=== PATIENT | female | born 1995 | race Asian ===

== ENCOUNTER 2025-01-12 22:25 | Inpatient (IN) ==
[2025-01-12] MEDS ORDERED: LIDOCAINE 1% LOCAL 20 ML VIAL INFIL PRN (23:11)
[2025-01-12] MEDS ORDERED: CALCIUM CARBONATE 500 MG CHEWABLE TAB PO PRN (23:11)
[2025-01-12] MEDS ORDERED: ACETAMINOPHEN 325 MG TAB PO PRN (23:11)
--- NOTE | 2025-01-12 23:16 | History & Physical Report ---
Date of Service January 12, 2025 Assessment & Plan (1) Normal labor: Plan: primip in active labor at 40+ weeks will begin PCN for GBS prophylaxis epidural when requested BSG Q2H anticipate vaginal History of Present Illness Primary Care Provider: PIO Martinez Jennifer is a 29 yo female EDC 01/08/25 who presents in active labor at 40 4/7 weeks. complicated by diet controlled GDM , hypothyroidism. testing has been reassuring. GBS -positive. O -positive Allergies Allergy/AdvReac Type Severity Reaction Status Date / Time No Known Allergies Allergy Verified 01/12/25 22:45 Home Medications Medication Instructions Recorded Confirmed Type acetone (urine) test (Ketone Urine #50 ea 08/09/24 01/10/25 Rx Test strips) lancets 33 gauge (OneTouch Delica #150 ea 08/09/24 01/10/25 Rx Plus Lancet) blood-glucose meter (OneTouch #1 ea 08/13/24 01/10/25 Rx Verio Flex Start kit) blood sugar diagnostic (OneTouch #150 ea 10/14/24 01/10/25 Rx Verio test strips) Euthyrox 88 mcg tablet 88 mcg PO DAILY #30 tabs 11/04/24 01/12/25 Rx (levothyroxine) cholecalciferol (vitamin D3) 1,250 1,250 mcg PO .weekly 8 weeks #8 11/20/24 01/12/25 Rx mcg (50,000 unit) capsule caps breast pump #1 ea 12/13/24 01/10/25 Rx Patient History Medical History Low ferritin Low vitamin D level Low vitamin B12 level Infertility, female Fatigue Orthostatic dizziness History of Quan's sarcoma Abdominal pain 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 Current Living Situation: Spouse Current Living Situation Comment: apartment with current occupational status: other current occupation: homemaker Other Information That Helps Us Care for You: No Feels Safe at Home: Yes Safety Concerns: Feels Safe At This Time Diet: regular Diet Comment: eats reg diet Assistive Devices: None Review of Systems All systems reviewed & are unremarkable except as noted in HPI & below Physical Exam Constitutional: WD/WN, vitals as above Psychiatric: A+Ox3, euthymic affect Genitourinary: OB Exam Abdomen: + fundal height (term), + vertex, + estimated weight (7-8 pounds) and + regular contractions (3-5 minutes) Manual OB Exam: + cervical dilation 5 cm, + cervical effacement 90% and + station 0 OB Exam Monitor Tracing: + external FHT monitor used, + external uterine monitor used, + category I and + normal FHT variability Results & Data Vital Signs (Past 12 Hours) Vital Signs Temp Pulse Resp BP O2 Del Method 01/12/25 22:48 98.2 F 16 Room Air 01/12/25 22:43 98.2 F 67 16 105/63 Code Status & VTE Plan VTE Prophylaxis Plan VTE Prophylaxis will be ordered: No Coding Level of Care Code 28689 INT INP/OBS CARE 1/40MIN Diagnoses Normal labor O80; Z37.9
[2025-01-12] MEDS ORDERED: PENICILLIN GK 6 MU in DEXTROSE 5% 250 ML IV STA (23:18)
[2025-01-12] MEDS: LACTATED RINGER'S 1,000 ML IV PRN (23:33)
[2025-01-12 23:38] LABS: Hematocrit (blood only) 39.1 % (37.0-47.0); Hemoglobin 13.2 g/dl (12.0-16.0); Mean Corpuscular Hemoglobin 30.1 pg (25.0-34.0); Mean Corpuscular Hgb Conc 33.8 g/dL (32.0-36.0); Mean Corpuscular Volume 89.1 fL (80.0-100.0); Mean Platelet Volume 10.7 fL (9.4-12.4); Platelet Count 253 K/uL (130-400); RDW Standard Deviation 45.4 fL (36.4-46.3); Red Blood Count 4.39 M/uL (4.20-5.40); White Blood Count 12.53 K/ul (4.8-10.8)
[2025-01-12] MEDS: ceFAZolin 1000MG 1,000 MG/7.5 ML SYR IV PRN (23:57)
[2025-01-13] MEDS: BUPIVACAINE 0.25% PF 30 ML VIAL ONE (00:26)
[2025-01-13] MEDS: LIDOCAINE 2%/EPINEPHRINE 1:200,000 20 ML PF ONE (00:26)
[2025-01-13] MEDS: fentANYL 2 MCG/ML BUPIVacaine 0.125%-NSS 100ML BAG ONE (00:28)
--- NOTE | 2025-01-13 00:39 | Anesthesiology Consultation ---
Date of Service January 13, 2025 Assessment & Plan Chart Review Chart Review: Acceptable Risk for Labor Epidural Consults Requested none History Height/Weight Height: 5 ft 4.96 in Weight: 63.049 kg Allergies Allergy/AdvReac Type Severity Reaction Status Date / Time Penicillins Allergy Unknown Verified 01/12/25 23:45 Medications Home Medications Medication Instructions Recorded Confirmed Last Taken acetone (urine) test (Ketone Urine #50 ea 08/09/24 01/10/25 Unknown Test strips) lancets 33 gauge (OneTouch Delica #150 ea 08/09/24 01/10/25 Unknown Plus Lancet) blood-glucose meter (OneTouch #1 ea 08/13/24 01/10/25 Unknown Verio Flex Start kit) blood sugar diagnostic (OneTouch #150 ea 10/14/24 01/10/25 Unknown Verio test strips) Euthyrox 88 mcg tablet 88 mcg PO DAILY #30 tabs 11/04/24 01/12/25 01/12/25 (levothyroxine) cholecalciferol (vitamin D3) 1,250 1,250 mcg PO .weekly 8 weeks #8 11/20/24 01/12/25 01/12/25 mcg (50,000 unit) capsule caps breast pump #1 ea 12/13/24 01/10/25 Unknown Active Medications Generic Name Dose Route Start Last Admin Trade Name Freq PRN Reason Stop Dose Admin Lactated Ringer's 1,000 mls @ 125 mls/hr 01/12/25 23:11 01/13/25 00:34 Lr IV 01/14/25 23:10 125 mls/hr .Q8H PRN Administration L&D Protocol Protocol Cefazolin Sodium 1,000 mg in 7.5 mls @ 2.5 mls/min 01/12/25 23:51 01/12/25 23:57 Ancef 1000mg IV 01/22/25 23:50 2.5 mls/min Q8H PRN Administration GBS(+) Until Delivery Past Medical History Medical History Low ferritin Low vitamin D level Low vitamin B12 level Infertility, female Fatigue Orthostatic dizziness History of Quan's sarcoma Abdominal pain Low grade squamous intraepithelial lesion (LGSIL) on cervical Pap smear Adnexal mass Hypothyroid Anemia Quan's sarcoma Past Family History Family History Sister Down's syndrome Denies family history of Ovarian cancer Heart disease Breast cancer Colorectal cancer Hypertension Past Surgical History Surgical History Status post colposcopy History of pancreatic surgery H/O exploratory laparotomy Social History Smoking Status: Never smoker Do You Dip or Chew Tobacco: No Hx Alcohol Use: No Hx Substance Use: No Physical Exam Vital Signs Last Vital Signs Temp 36.8 C 01/12/25 22:48 Pulse 84 01/13/25 00:37 Resp 16 01/12/25 22:48 BP 102/54 L 01/13/25 00:37 Pulse Ox 100 01/13/25 00:36 O2 Del Method Room Air 01/12/25 22:48 Testing Laboratory Results 01/12/25 23:19 01/12/25 23:36 POC Glucose 80
[2025-01-13] MEDS ORDERED: NALOXONE HCL 1 MG in SODIUM CHLORIDE 0.9% 1,000 ML IV PRN (00:42)
[2025-01-13] MEDS ORDERED: NALOXONE HCL 0.4 MG/1 ML VIAL/CARP IV PRN (00:42)
[2025-01-13] MEDS ORDERED: SODIUM CHLORIDE 0.9% PF INJ 10 ML VIAL EPI PRN (00:42)
[2025-01-13] MEDS ORDERED: fentaNYL citrate PF 100 MCG/2 ML VIAL EPI PRN (00:42)
[2025-01-13] MEDS ORDERED: diphenhydrAMINE 50 MG/ML VIAL IV PRN (00:42)
[2025-01-13] MEDS ORDERED: LIDOCAINE 2% MPF LOCAL 5 ML VIAL EPI PRN (00:42)
[2025-01-13] MEDS ORDERED: NALBUPHINE HCL INJ 10 MG/ML AMP IV PRN (00:42)
[2025-01-13] MEDS ORDERED: ePHEDrine sulfate 50 MG/ML AMP IV PRN (00:42)
[2025-01-13] MEDS ORDERED: BUPIVACAINE 0.25% PF 30 ML VIAL EPI PRN (00:42)
[2025-01-13] MEDS ORDERED: ROPIVACAINE 0.5% PF 5 MG/ML 20 ML VIAL EPI PRN (00:42)
[2025-01-13] MEDS ORDERED: fentANYL 2 MCG/ML BUPIVacaine 0.125%-NSS 100ML BAG EPI PRN (00:42)
[2025-01-13] MEDS: fentaNYL citrate PF 100 MCG/2 ML VIAL ONE (00:54)
[2025-01-13] MEDS ORDERED: PENICILLIN GK 3 MU in DEXTROSE 5% 100 ML IV PRN (02:11)
[2025-01-13] MEDS: ePHEDrine sulfate 50 MG/ML AMP ONE (04:29)
[2025-01-13] MEDS: LIDOCAINE 2%/EPINEPHRINE 1:200,000 20 ML PF EPI STA (04:30)
[2025-01-13] MEDS: BUPIVACAINE 0.25% PF 30 ML VIAL EPI STA (04:30)
[2025-01-13] MEDS: fentaNYL citrate PF 100 MCG/2 ML VIAL EPI STA (04:30)
[2025-01-13] MEDS: SODIUM CHLORIDE 0.9% PF INJ 10 ML VIAL ONE (04:30)
[2025-01-13] MEDS: SODIUM CHLORIDE 0.9% PF INJ 10 ML VIAL EPI STA (04:30)
[2025-01-13] MEDS: LEVOTHYROXINE SODIUM 88 MCG TABLET PO SCH (06:01)
[2025-01-13] MEDS: OXYTOCIN 30 UNITS/NSS 30 UNITS/500 ML BAG IV PRN (09:02)
--- NOTE | 2025-01-13 09:24 | Delivery Summary ---
Vaginal Delivery Summary Date of Service January 13, 2025 Vaginal Delivery Summary and 2nd Degree LAC PREOPERATIVE DIAGNOSIS: 1. Single intrauterine at 40 5/7 wga 2. Labor 3. A1GDM 4. Hypothyroid 5. GBS+ POSTOPERATIVE DIAGNOSIS: 1. Single intrauterine at 40 5/7 wga 2. Labor 3. A1GDM 4. Hypothyroid 5. GBS+ 6. Delivered PROCEDURE: 1. Normal spontaneous vaginal delivery. SURGEON: Monica Stevens MD ANESTHESIA: Epidural. QUANTITATIVE BLOOD LOSS: 135 mL FLUIDS: Continuous LR. URINE OUTPUT: None. COMPLICATIONS: None. CONDITION: Stable. INDICATIONS: 29 yo at 40 5/7 wga presented this AM in labor. She received an epidural for pain control and underwent arom. She then progressed and desired to push FINDINGS: A viable male , weight pending with Apgars of 8 and 9 at 1 and 5 minutes respectively. SPECIMEN: Cord blood OPERATIVE REPORT: The patient progressed to 10 cm, 100% effaced and +2 station, pushed over intact perineum with anesthesia to deliver a viable male infant, weight and Apgars as above. Head of delivered in RAEGAN position. Loose body cord was delivered through. Body and shoulders were delivered without difficulty. was delivered to maternal abdomen and nursing staff. Delayed cord clamping was performed for 60 seconds. Cord was clamped and cut. Cord blood was obtained. Placenta delivered spontaneously intact with 3-vessel cord. IV oxytocin and fundal massage were given for excellent hemostasis. Vagina, cervix, perineum, and placenta were inspected. A second degree laceration was repaired using 3-0 vicryl, there was excellent hemostasis. Sponge and needle counts correct x2. No sponges were left behind. Mother and stable in immediate period. [facility] [place] Vaginal Delivery Codes: 70404 global code for the antepartum, delivery, and post- Delivery Type Details: and 2nd Degree LAC
[2025-01-13] MEDS ORDERED: HYDROCORTISONE ACETATE 25 MG SUPP PR PRN (09:27)
[2025-01-13] MEDS ORDERED: DIPHTHER/TETAN/PERTUS Vaccine (Tdap, Adol/Adult) 0.5mL IM ONE (09:27)
[2025-01-13] MEDS ORDERED: bisacodyL 10 MG SUPP PR PRN (09:27)
[2025-01-13] MEDS ORDERED: OXYTOCIN 30 UNITS/NSS 30 UNITS/500 ML BAG IV PRN (09:27)
--- NOTE | 2025-01-13 10:13 | Anesthesia Procedure Note ---
Date of Service January 13, 2025 Anesthesia Post Epidural Note Vital Signs Vital Signs: Temp Pulse Resp BP Pulse Ox O2 Del Method 36.9 C 68 20 115/74 100 Room Air 01/13/25 07:06 01/13/25 10:00 01/13/25 10:00 01/13/25 10:00 01/13/25 09:16 01/12/25 22:48 Pain Intensity Right Abdomen: Pain Intensity: 0 Notes Mental Status: alert / awake / arousable and participated in evaluation Nausea / Vomiting: adequately controlled Pain: adequately controlled Airway Patency, RR, SpO2: stable & adequate BP & HR: stable & adequate Hydration State: stable & adequate Neuraxial Anesthesia: was administered and sensory block resolved Anesthetic Complications: no major complications apparent and Pt Satisfied with anesthetic care Epidural: Removed without complications and With tip intact
[2025-01-13] MEDS: BENZOCAINE 20% SPRY 85 APPLN/85 GM CAN EXT PRN (14:10)
[2025-01-13] MEDS: ACETAMINOPHEN 325 MG TAB PO PRN (15:39)
[2025-01-13] MEDS: IBUPROFEN 600 MG TAB PO PRN (15:40)
[2025-01-13] MEDS: DOCUSATE SODIUM 100 MG CAP PO SCH (20:07)
--- NOTE | 2025-01-14 05:52 | Obstetrical Progress Note ---
Date of Service January 14, 2025 Assessment & Plan (1) Encounter for care and examination after delivery: (2) Gestational diabetes: (3) Hypothyroidism affecting : Plan Pt is 29 yo G21 post- day 1 s/p at 40w4d. complicated by diet controlled GDM and hypothyroidism. Pt is recovering well. Will plan to stay overnight for continued nursing support. - Encourage ambulation - Encourage breast feeding - Pain control with continued alternating tylenol and ibuprofen - Anticipate DC 01/14 Admission and Anticipated Discharge Date Admission Date: January 12, 2025 Supervising Physician Co-Signing Physician Notes Resident Physician Supervision Note: I interviewed and examined the patient. Discussed with Dr. aNrvaez and agree with findings and plan as documented in the note. Any exceptions or clarifications are listed here: stable doing well. eating, voiding, bleeding dec, having some pain/cramping, helped by po pain meds. . discussed some pp instructions as she had questions. abd soft ff 2 down nt, ext nt calves. ppd#1 s/p , doing well, routine care. Documented By: Sharon Mcguire MD, FACOG Subjective Pt is 29 yo G21 post- day 1 s/p at 40w4d Ambulation:In room Voiding:voiding normally Passing gas: yes BM: no Diet tolerance:regular diet Lochia:bloody, no clots Feeding type: breast Current pain level: 5 /10 improved with ibuprofen Resting comfortably this morning in NAD. She reports pain at her bottom and uterine cramping that is not fully controlled by alternating tylenol and ibuprofen. Denies GAINES, CP, SOB, N/V/D, LE pain/swelling. Review of Systems Review of Systems: As per HPI Physical Exam Constitutional: WD/WN, vitals as above Respiratory: normal respiratory effort, lungs clear to auscultation Cardiovascular: RRR, no murmur, no edema Gastrointestinal (Abdomen): normal bowel sounds, soft, nontender, no hepatosplenomegaly Uterine fundus firm and at 1 cm below level of umbilicus Neurologic: PERRL, EOMI, accommodation nl, no face palsy, no dysarthria Moving all 4 extremities on command Psychiatric: A+Ox3, euthymic affect Results & Data Vital Signs (Past 12 Hours) Vital Signs Temp Pulse Resp BP Pulse Ox O2 Del Method 01/14/25 03:40 36.7 C 74 18 107/60 99 Room Air 01/14/25 00:25 36.8 C 78 16 93/62 L 99 Room Air 01/13/25 20:05 Room Air 01/13/25 20:05 36.4 C L 66 18 107/68 97 Room Air Resident Activity Tracking Resident Involvement: Resident Care Provided Care Provided: Adult Hospital Medicine
[2025-01-14] MEDS: LEVOTHYROXINE SODIUM 88 MCG TABLET PO SCH (06:23)
[2025-01-14] MEDS: PRENATAL VITAMIN 1 TAB PO SCH (08:22)
[2025-01-14] MEDS: bisacodyL 5 MG TABEC PO SCH (19:32)
--- NOTE | 2025-01-15 06:06 | Obstetrical Progress Note ---
Date of Service January 15, 2025 Assessment & Plan (1) Encounter for care and examination after delivery: (2) Gestational diabetes: (3) Hypothyroidism affecting : Plan Pt is 29 yo G21 post- day 2 s/p at 40w4d. complicated by diet controlled GDM and hypothyroidism. Pt is concerned for continued uterine cramping and L>R ankle pin this morning. - Ordered bilateral LE duplex - Encourage ambulation - Encourage breast feeding - Pain control with continued alternating tylenol and ibuprofen - Anticipate DC today pending LE duplex results Admission and Anticipated Discharge Date Admission Date: January 12, 2025 Supervising Physician Co-Signing Physician Notes Resident Physician Supervision Note: I was present with Dr. Narvaez during the history and exam. I discussed the case with the resident and agree with the findings and plan as documented in the note. Any exceptions or clarifications are listed here: [None] Documented By: Miki Ivan MD, FACOG Subjective Pt is 29 yo G21 post- day 2 s/p at 40w4d Ambulation:In room Voiding:voiding normally Passing gas: yes BM: no Diet tolerance:regular diet Lochia:bloody, no clots Feeding type: breast Current pain level: 5-6 /10 improved with ibuprofen, tylenol, and heating pad Resting comfortably this morning in NAD. She reports pain at her bottom and uterine cramping that is not fully controlled by alternating tylenol and ibuprofen. Pt also c/o pain at left calf and ankle. Denies GAINES, CP, SOB, N/V/D, LE pain/swelling. Review of Systems Review of Systems: As per HPI Physical Exam Constitutional: WD/WN, vitals as above Respiratory: normal respiratory effort, lungs clear to auscultation Cardiovascular: RRR, no murmur, no edema Gastrointestinal (Abdomen): normal bowel sounds, soft, nontender, no hepatosplenomegaly Uterine fundus is firm and 2 cm below level of umbilicus Musculoskeletal: Bilateral LE's are of normal skin tone, normal temperature to touch, and non tender to palpation. Marylu's sign is negative. Neurologic: PERRL, EOMI, accommodation nl, no face palsy, no dysarthria Psychiatric: A+Ox3, euthymic affect Results & Data Vital Signs (Past 12 Hours) Vital Signs Temp Pulse Resp BP Pulse Ox O2 Del Method 01/15/25 05:15 36.4 C L 01/14/25 23:30 36.8 C 68 18 101/79 95 Room Air 01/14/25 19:33 36.8 C 65 18 122/79 98 Room Air Resident Activity Tracking Resident Involvement: Resident Care Provided Care Provided: Adult Hospital Medicine
[2025-01-15 07:48] VITALS: O2SAT 96
[2025-01-15 09:27] VITALS: BP 107/72; PULSE 62; RESP 20; TEMP 97.9
--- NOTE | 2025-01-15 09:38 | Ultrasound Report ---
BILATERAL LOWER EXTREMITY VENOUS DOPPLER HISTORY: calf pain post delivery COMPARISON STUDY: None FINDINGS: No evidence of DVT seen at the lower extremities bilaterally. IMPRESSION: No DVT seen. ACT 112: Negative or not required by law. Electronically signed by: Gustabo Santana M.D. 01/15/2025 9:37 AM
== END 2025-01-15 13:17 | disposition home or self-care (01) | DRG 807 ==
LOC: OPB 22:25 → 4S1 22:26 → 4E2 01-13 12:52